=== PATIENT | male | born 2000 | race Caucasian/White ===

== ENCOUNTER 2019-04-12 22:16 | Inpatient (IN) | payer BC ==
[~2019-04-12] VITALS: Ht 180.3 cm; Wt 81.8 kg
[2019-04-12] MEDS ORDERED: [UNRECOGNIZED DRUG - REMARK] (22:27)
[2019-04-12] MEDS ORDERED: ACET-2605 PO (22:27)
[2019-04-12] MEDS ORDERED: ONDA4TAB5 PO (22:27)
[2019-04-12] MEDS ORDERED: KETOROLAC TROMETHAMINE 30 MG INJ IVP ONE (23:00)
[2019-04-12] MEDS ORDERED: IV NORMAL SALINE 1000 ML BAG IV ONE (23:00)
[2019-04-12] MEDS ORDERED: ONDANSETRON IV *ER 4 MG/2 ML VIAL IV ONE (23:00)
[2019-04-12] MEDS ORDERED: KETOROLAC TROMETHAMINE 30 MG INJ ONE (23:02)
[2019-04-12] MEDS ORDERED: ONDANSETRON 4 MG/2 ML VIAL ONE (23:02)
[2019-04-12 23:12] LABS: EOSINOPHILS # (AUTO) 0.1 K/uL (0.0-0.7); EOSINOPHILS % (AUTO) 0.7 % (0.0-7.0); HEMATOCRIT 47.4 % (36.7-47.1); HEMOGLOBIN 16.4 g/dL (12.5-16.3); LYMPHOCYTES # (AUTO) 0.5 K/uL (20.0-40.0); LYMPHOCYTES % (AUTO) 4.2 % (20.5-74.5); MEAN CORPUSCULAR HEMOGLOBIN 30.8 uug (23.8-33.4); MEAN CORPUSCULAR HGB CONC 35 g/dL (32.5-36.3); MONOCYTES % (AUTO) 8.5 % (0-11); NEUTROPHILS # (AUTO) 10.6 K/uL (1.8-8.9); NEUTROPHILS % (AUTO) 86.6 % (31.5-64.5); PLATELET COUNT (AUTO) 223 K/uL (152-348); RED BLOOD CELL COUNT(AUTO) 5.33 MIL/uL (4.06-5.63); WHITE BLOOD COUNT (AUTO) 12.2 K/uL (3.6-10.2)
[2019-04-12 23:31] LABS: POTASSIUM 4.1 mmol/L (3.5-5.1)
[2019-04-12 23:36] LABS: BILIRUBIN,DIRECT 0.2 mg/dL (0.0-0.2); BILIRUBIN,TOTAL 0.8 mg/dL (0.2-1.0); TOTAL PROTEIN, SERUM 8.1 g/dL (6.4-8.2)
[2019-04-13] MEDS ORDERED: AZITHROMYCIN IV 500 MG in IV DEXTROSE 5% 250 ML IV ONE (00:15)
[2019-04-13] MEDS ORDERED: MEROPENEM 1,000 MG in IV NORMAL SALINE 250 ML IV ONE (00:15)
[2019-04-13] MEDS ORDERED: AZITHROMYCIN 500 MG VIAL IV ONE (00:21)
[2019-04-13] MEDS ORDERED: MEROPENEM 1 G VIAL IV ONE (00:22)
[2019-04-13] MEDS ORDERED: ONDANSETRON 4 MG/2 ML VIAL ONE (01:14)
[2019-04-13] MEDS ORDERED: ONDANSETRON IV *ER 4 MG/2 ML VIAL IV ONE (01:15)
[2019-04-13] MEDS ORDERED: HYDROCODONE/APAP 5-325MG TABLET PO PRN (02:15)
[2019-04-13] MEDS ORDERED: ONDANSETRON 4 MG/2 ML VIAL IV PRN (02:15)
[2019-04-13] MEDS ORDERED: TEMAZEPAM 15 MG CAPSULE PO PRN (02:15)
[2019-04-13] MEDS ORDERED: MAGNESIUM HYDROXIDE 30 ML LIQUID UDC PO PRN (02:15)
[2019-04-13 02:50] VITALS: BP 135/59
[2019-04-13] MEDS: IV NS 1000 ML 1,000 ML IV PRN ×2 (03:03→13:15)
[2019-04-13] MEDS ORDERED: diphenhydrAMINE 50 MG/1 ML VIAL IV ONE (03:45)
[2019-04-13] MEDS ORDERED: FAMOTIDINE. 20 MG/2 ML VIAL IV ONE (03:45)
[2019-04-13] MEDS ORDERED: methylPREDNISolone SOD SUCC 125 MG/2 ML VIAL IV ONE (03:45)
[2019-04-13 04:00] VITALS: BP 133/62
[2019-04-13 06:46] LABS: PHOSPHOROUS 1.9 mg/dL (2.5-4.9)
[2019-04-13] MEDS ORDERED: AZITHROMYCIN IV 500 MG in IV DEXTROSE 5% 250 ML IV SCH (08:15)
[2019-04-13] MEDS ORDERED: MEROPENEM 1 G in IV NORMAL SALINE 100 ML IV SCH (09:00)
[2019-04-13] MEDS: ACETAMINOPHEN 325 MG TABLET PO PRN ×3 (09:10→21:10)
[2019-04-13] MEDS ORDERED: LACTULOSE 20 G/30 ML LIQUID UDC PO PRN (11:00)
[2019-04-13] MEDS ORDERED: LACTULOSE 20 G/30 ML LIQUID UDC PO ONE (11:00)
[2019-04-13 11:05] LABS: CREATININE 0.8 mg/dL (0.6-1.3); POTASSIUM 4.3 mmol/L (3.5-5.1)
[2019-04-13 11:20] VITALS: BP 124/81
[2019-04-13] MEDS: LEVOFLOXACIN 500 MG/D5W 500 MG in PREMIXED 1 EACH IV SCH (13:23)
[2019-04-13] MEDS ORDERED: MORPHINE SULFATE 2 MG/1 ML DISP.SYRIN IV PRN (14:30)
[2019-04-13] MEDS: methylPREDNISolone SOD SUCC 40 MG/ML VIAL IV SCH ×2 (14:41→23:38)
[2019-04-13] MEDS: FAMOTIDINE. 20 MG/2 ML VIAL IV SCH ×2 (14:42→21:03)
[2019-04-13] MEDS: IV D5 1/2 NS 1000 ML 1,000 ML IV PRN (15:00)
[2019-04-13 15:14] VITALS: BP 123/76
[2019-04-13] MEDS ORDERED: NEUTRA PHOS PACKET PO ONE (16:00)
[2019-04-13 20:00] VITALS: BP 122/81
[2019-04-14] MEDS ORDERED: AZITHROMYCIN IV 500 MG in IV DEXTROSE 5% 250 ML IV SCH (01:00)
[2019-04-14] MEDS: IV D5 1/2 NS 1000 ML 1,000 ML IV PRN (03:41)
[2019-04-14 05:31] VITALS: BP 123/80
[2019-04-14 05:36] LABS: BASOPHILS % (AUTO) 0.1 % (0.0-2.0); HEMATOCRIT 39.6 % (36.7-47.1); HEMOGLOBIN 13.7 g/dL (12.5-16.3); LYMPHOCYTES # (AUTO) 0.7 K/uL (20.0-40.0); LYMPHOCYTES % (AUTO) 10.6 % (20.5-74.5); MEAN CORPUSCULAR HEMOGLOBIN 30.6 uug (23.8-33.4); MEAN CORPUSCULAR HGB CONC 35 g/dL (32.5-36.3); MONOCYTES # (AUTO) 0.7 K/uL (2.0-10.0); MONOCYTES % (AUTO) 10.4 % (0-11); NEUTROPHILS # (AUTO) 5.5 K/uL (1.8-8.9); NEUTROPHILS % (AUTO) 78.9 % (31.5-64.5); PLATELET COUNT (AUTO) 246 K/uL (152-348); RED BLOOD CELL COUNT(AUTO) 4.49 MIL/uL (4.06-5.63); WHITE BLOOD COUNT (AUTO) 6.9 K/uL (3.6-10.2)
[2019-04-14 05:47] LABS: CARBON DIOXIDE 27 mmol/L (21-32); CHLORIDE 106 mmol/L (98-107); CREATININE 0.7 mg/dL (0.6-1.3); GLUCOSE 146 mg/dL (74-106); PHOSPHOROUS 2.7 mg/dL (2.5-4.9); POTASSIUM 4.3 mmol/L (3.5-5.1); UREA NITROGEN, BLOOD 14 mg/dL (7-18)
[2019-04-14] MEDS: methylPREDNISolone SOD SUCC 40 MG/ML VIAL IV SCH ×2 (08:14→21:04)
[2019-04-14] MEDS: FAMOTIDINE. 20 MG/2 ML VIAL IV SCH (08:14)
[2019-04-14 08:29] LABS: *BILIRUBIN,URIN NEGATIVE (NEGATIVE); *BLOOD, URINE NEGATIVE (NEGATIVE); *CLARITY,URINE CLEAR (CLEAR); *COLOR,URINE YELLOW (YELLOW); *KETONES,URINE NEGATIVE (NEGATIVE); LEUKOCYTE ESTERASE ,URINE NEGATIVE (NEGATIVE); NITRITE, URINE NEGATIVE (NEGATIVE); UGLUCOSE NEGATIVE (NEGATIVE)
[2019-04-14] MEDS: HYDROCODONE/APAP 10-325 MG TABLET PO PRN ×3 (08:29→22:24)
[2019-04-14 09:31] LABS: BACTERIA,URINE NONE SEEN /HPF (NONE SEEN); RBC,URINE NONE SEEN /HPF (0-3); SQUAMOUS EPITHELIAL CELL,UR FEW /HPF (NONE SEEN); WBC,URINE NONE SEEN /HPF (0-3)
[2019-04-14 11:20] VITALS: BP 110/64
[2019-04-14] MEDS: LEVOFLOXACIN 500 MG/D5W 500 MG in PREMIXED 1 EACH IV SCH (12:10)
[2019-04-14] MEDS ORDERED: IV NORMAL SALINE 250 ML IV ONE (14:43)
[2019-04-14] MEDS ORDERED: CELLULOSE,OXIDIZED 2x3 MC ONE (14:43)
[2019-04-14] MEDS ORDERED: IOHEXOL 300MG/ML 100 ML INFUS..BTL ONE (14:43)
[2019-04-14 15:36] VITALS: BP 118/72
[2019-04-14] MEDS: METRONIDAZOLE 500 MG/NS 100ML 500 MG in PREMIXED 1 EACH IV SCH ×2 (15:51→21:17)
[2019-04-14] MEDS ORDERED: GUAIFENESIN/DEXTROMETHORPHAN 5 ML UDC PO PRN (16:00)
[2019-04-14] MEDS: VANCOMYCIN IV 1,250 MG in IV DEXTROSE 5% 500 ML IV SCH ×2 (16:09→22:51)
[2019-04-14 20:10] VITALS: BP 116/70
[2019-04-14] MEDS: FAMOTIDINE 20 MG TABLET PO SCH (21:04)
[2019-04-15] MEDS: IV D5 1/2 NS 1000 ML 1,000 ML IV PRN (00:47)
[2019-04-15] MEDS: METRONIDAZOLE 500 MG/NS 100ML 500 MG in PREMIXED 1 EACH IV SCH ×2 (05:18→14:07)
[2019-04-15 06:28] LABS: BASOPHILS % (AUTO) 0.2 % (0.0-2.0); HEMATOCRIT 41.2 % (36.7-47.1); LYMPHOCYTES # (AUTO) 1.1 K/uL (20.0-40.0); LYMPHOCYTES % (AUTO) 10.7 % (20.5-74.5); MEAN CORPUSCULAR HEMOGLOBIN 30.8 uug (23.8-33.4); MEAN CORPUSCULAR HGB CONC 34 g/dL (32.5-36.3); MEAN CORPUSCULAR VOLUME 90.3 fL (73.0-96.2); MONOCYTES # (AUTO) 1.1 K/uL (2.0-10.0); MONOCYTES % (AUTO) 10.5 % (0-11); NEUTROPHILS # (AUTO) 8.4 K/uL (1.8-8.9); NEUTROPHILS % (AUTO) 78.6 % (31.5-64.5); PLATELET COUNT (AUTO) 282 K/uL (152-348); RED BLOOD CELL COUNT(AUTO) 4.56 MIL/uL (4.06-5.63); WHITE BLOOD COUNT (AUTO) 10.7 K/uL (3.6-10.2)
[2019-04-15] MEDS: VANCOMYCIN IV 1,250 MG in IV DEXTROSE 5% 500 ML IV SCH (06:31)
[2019-04-15 06:43] LABS: CREATININE 0.8 mg/dL (0.6-1.3); MAGNESIUM 2.1 mg/dL (1.8-2.4); PHOSPHOROUS 3.5 mg/dL (2.5-4.9); POTASSIUM 4.3 mmol/L (3.5-5.1)
[2019-04-15 06:56] VITALS: BP 122/76
[2019-04-15 08:46] LABS: *MONOTEST NEGATIVE (NEGATIVE)
[2019-04-15] MEDS: methylPREDNISolone SOD SUCC 40 MG/ML VIAL IV SCH (09:49)
[2019-04-15] MEDS: FAMOTIDINE 20 MG TABLET PO SCH (09:49)
[2019-04-15 11:53] VITALS: BP 110/73
[2019-04-15] MEDS: LEVOFLOXACIN 500 MG/D5W 500 MG in PREMIXED 1 EACH IV SCH (12:48)
[2019-04-15] MEDS: ACETAMINOPHEN 325 MG TABLET PO PRN (13:49)
[2019-04-15] MEDS ORDERED: DEXT15SY3 PO (15:49)
[2019-04-15] MEDS ORDERED: METR500T PO (15:49)
[2019-04-15] MEDS ORDERED: LEVO500T90 PO (15:49)
[2019-04-15] MEDS ORDERED: VANCOMYCIN IV 1,500 MG in IV DEXTROSE 5% 500 ML IV SCH (16:00)
[2019-04-15 16:08] VITALS: BP 103/51
== END 2019-04-15 21:22 | disposition home or self-care (01) | DRG 871 ==
LOC: ER 22:19 → TELE3 04-13 00:30 → MEDSURG3 04-13 11:12
PROVIDERS: ADMIT Nurse Practitioner Acute Care; ATTEND Internal Medicine
DX: A41.9 Sepsis, unspecified organism (principal); J69.0 Pneumonitis due to inhalation of food and vomit; L03.116 Cellulitis of left lower limb; L03.115 Cellulitis of right lower limb; L03.114 Cellulitis of left upper limb; L03.113 Cellulitis of right upper limb; Z98.890 Other specified postprocedural states; K59.00 Constipation, unspecified; Z88.0 Allergy status to penicillin; Z83.3 Family history of diabetes mellitus; Z80.3 Family history of malignant neoplasm of breast; E86.0 Dehydration; J30.1 Allergic rhinitis due to pollen; E83.39 Other disorders of phosphorus metabolism; D89.89 Other specified disorders involving the immune mechanism, not elsewhere classified; R93.1 Abnormal findings on diagnostic imaging of heart and coronary circulation
CPT/HCPCS: 36415; 70491; 71045; 83605; 83735; 84100; 85025; 85730; 86308; 87040; 87070; 87086; 87806; 93005; 93307; A4663; G0378; J0456; J1200; J1885; J1956; J2185; J2270; J2405; J2920; J2930; J3370; J3490; J7030; J7040; J7050; J7060; Q9967